=== PATIENT | male | born 1955 | race Caucasian/White ===

== ENCOUNTER 2018-06-01 19:34 | Emergency (ER) | payer OTHER ==
[~2018-06-01] VITALS: Ht 180.3 cm; Wt 92.5 kg
[2018-06-01] MEDS ORDERED: ATORVASTATIN CA10 MG (19:44)
[2018-06-01] MEDS ORDERED: LEVODOPA25 GM (19:45)
[2018-06-01] MEDS ORDERED: ELIQUIS5 MG (19:46)
[2018-06-01] MEDS ORDERED: PRAMIPEXOLE E2.25 MG (19:46)
[2018-06-01] MEDS ORDERED: METOPROLOL TART75 MG (19:46)
[2018-06-01] MEDS ORDERED: ARTANE2 MG (19:47)
[2018-06-01] MEDS ORDERED: TAMS0.4C (19:47)
== END 2018-06-01 22:42 | disposition home or self-care (01) ==
LOC: ER 19:34
DX: R30.0 Dysuria (principal); R33.8 Other retention of urine; N30.80 Other cystitis without hematuria